=== PATIENT | male | born 1965 | race Caucasian/White ===

== ENCOUNTER 2016-08-01 14:41 | Inpatient (IN) | payer OTHER ==
[~2016-08-01] VITALS: Ht 180.3 cm; Wt 225.2 kg
[~2016-08-01 14:41] MED LIST: ADVIL,NUPRIN,M200 MG PO; BISOPROLOL-HCT1 EAC2 PO; HYDROCODON-ACE1 EAC7 PO
[2016-08-01 16:02] LABS: MCH 34.5 PG (29.0-34.0); MCHC 34.6 G/DL (30.0-36.0); MCV 99.8 FL (86-99); MEAN PLAT.VOLUME 9.8 uM^3 (9.0-12.4); PLATELET COUNT 177 K/uL (156-360); RBC DIS.WIDTH-CV 13.5 % (11.8-14.6); RBC DIS.WIDTH-SD 47.9 % (39-53); RED BLOOD COUNT 4.11 M/uL (4.00-5.50); WHITE BLOOD COUNT 11.2 K/uL (4.1-10.2)
[2016-08-01 16:16] LABS: CHLORIDE 102 mEq/L (99-109); POTASSIUM 4.6 mEq/L (3.7-5.4); SODIUM 134 mEq/L (136-147)
[2016-08-01 16:18] LABS: GLUCOSE 111 mg/dL (70-99)
[2016-08-01 16:19] LABS: ANION GAP 10 MEQ/L (2-14)
[2016-08-01 16:22] LABS: GFR ESTIMATE (CALCULATED) > 59 mL/min/; UREA NITROGEN (BUN) 8 mg/dL (9-23)
[2016-08-01 16:26] LABS: D-DIMER ELISA > 4.00 mg/L FEU (< 0.57)
[2016-08-01 16:27] LABS: TROP-I INTERPRETATION NEGATIVE; TROPONIN-I < 0.01 ng/mL (0.0-0.30)
[2016-08-01 17:28] LABS: BASOPHIL COUNT 0.1 K/uL (0-0.1); EOSINOPHIL (%) 3.8 % (0-5); EOSINOPHIL COUNT 0.4 K/uL (0-0.3); IMMATURE GRANULOCYTE (%) 1.8 % (0.0-0.7); LYMPHOCYTE COUNT 1.7 K/uL (1.0-2.8); MONOCYTE (%) 6.2 % (3-12); MONOCYTE COUNT 0.7 K/uL (0-0.8); NEUTROPHIL (%) 72.8 % (45-76); NEUTROPHIL COUNT 8.3 K/uL (1.8-6.4)
[2016-08-01 17:50] LABS: INTER. NORMALIZED RATIO 1.5; PROTHROMBIN TIME 15.8 (9.2-11.2); PTT 25.7 (25-32)
[2016-08-01] MEDS ORDERED: ELAVIL25 MG PO (19:09)
[2016-08-01] MEDS ORDERED: BISOPROLOL-HCT1 EACH PO (19:09)
[2016-08-01] MEDS ORDERED: TOPAMAX25 MG PO (19:10)
[2016-08-01] MEDS ORDERED: NUCYNTA50 MG PO (19:10)
[2016-08-01 22:38] VITALS: BP 176/86
[2016-08-02 04:12] VITALS: BP 156/70
[2016-08-02 06:16] LABS: EOSINOPHIL (%) 5.5 % (0-5); EOSINOPHIL COUNT 0.5 K/uL (0-0.3); HEMATOCRIT 38.6 % (38.0-50.0); IMMATURE GRANULOCYTE (%) 0.5 % (0.0-0.7); IMMATURE GRANULOCYTE COUNT 0.1 K/uL; LYMPHOCYTE COUNT 2.2 K/uL (1.0-2.8); MCH 33.1 PG (29.0-34.0); MCHC 32.1 G/DL (30.0-36.0); MCV 102.9 FL (86-99); MEAN PLAT.VOLUME 10.1 uM^3 (9.0-12.4); MONOCYTE COUNT 0.7 K/uL (0-0.8); NEUTROPHIL COUNT 5.7 K/uL (1.8-6.4); PLATELET COUNT 180 K/uL (156-360); RBC DIS.WIDTH-CV 14.1 % (11.8-14.6); RBC DIS.WIDTH-SD 52.7 % (39-53); RED BLOOD COUNT 3.75 M/uL (4.00-5.50); WHITE BLOOD COUNT 9.2 K/uL (4.1-10.2)
[2016-08-02 06:43] LABS: ANION GAP 9 MEQ/L (2-14); CHLORIDE 100 MEQ/L (99-109); GFR ESTIMATE (CALCULATED) > 59 mL/min/; GLUCOSE 121 mg/dL (70-99); SAMPLE HEMOLYSIS CHECK 0; SAMPLE ICTERIC CHECK 0; SAMPLE LIPEMIA CHECK 0; SODIUM 134 MEQ/L (136-147); UREA NITROGEN (BUN) 9 mg/dL (9-23)
[2016-08-02 07:23] VITALS: BP 160/88
[2016-08-02 12:32] VITALS: BP 157/78
[2016-08-02 16:00] VITALS: BP 145/79
[2016-08-02 16:22] LABS: INTER. NORMALIZED RATIO 1.4; PROTHROMBIN TIME 14.7 (9.2-11.2); PTT 34.8 (25-32)
[2016-08-02 19:22] VITALS: BP 133/70
[2016-08-03 00:13] VITALS: BP 142/88
[2016-08-03 03:24] LABS: HEMATOCRIT 36.7 % (38.0-50.0); MCH 34.2 PG (29.0-34.0); MCHC 33.8 G/DL (30.0-36.0); MCV 101.1 FL (86-99); MEAN PLAT.VOLUME 9.7 uM^3 (9.0-12.4); PLATELET COUNT 187 K/uL (156-360); RBC DIS.WIDTH-CV 13.9 % (11.8-14.6); RBC DIS.WIDTH-SD 49.8 % (39-53); RED BLOOD COUNT 3.63 M/uL (4.00-5.50); WHITE BLOOD COUNT 9.4 K/uL (4.1-10.2)
[2016-08-03 03:35] LABS: INTER. NORMALIZED RATIO 1.3; PROTHROMBIN TIME 13.5 (9.2-11.2)
[2016-08-03 03:52] VITALS: BP 131/84
[2016-08-03 08:32] VITALS: BP 156/80
[2016-08-03 16:13] VITALS: BP 160/75
[2016-08-03 23:57] VITALS: BP 174/81
[2016-08-04 03:40] VITALS: BP 142/88
[2016-08-04 06:17] LABS: HEMATOCRIT 37.1 % (38.0-50.0); MCH 34.3 PG (29.0-34.0); MCHC 33.4 G/DL (30.0-36.0); MCV 102.5 FL (86-99); MEAN PLAT.VOLUME 10.5 uM^3 (9.0-12.4); PLATELET COUNT 209 K/uL (156-360); RBC DIS.WIDTH-CV 14.2 % (11.8-14.6); RBC DIS.WIDTH-SD 52.9 % (39-53); RED BLOOD COUNT 3.62 M/uL (4.00-5.50); WHITE BLOOD COUNT 9.4 K/uL (4.1-10.2)
[2016-08-04 06:30] LABS: INTER. NORMALIZED RATIO 1.4; PROTHROMBIN TIME 14.1 (9.2-11.2); PTT 37.8 (25-32)
[2016-08-04 07:18] LABS: ANION GAP 9 MEQ/L (2-14); CHLORIDE 103 MEQ/L (99-109); GFR ESTIMATE (CALCULATED) > 59 mL/min/; GLUCOSE 98 mg/dL (70-99); POTASSIUM 3.9 MEQ/L (3.7-5.4); SAMPLE HEMOLYSIS CHECK 0; SAMPLE ICTERIC CHECK 0; SAMPLE LIPEMIA CHECK 0; SODIUM 136 MEQ/L (136-147); UREA NITROGEN (BUN) 9 mg/dL (9-23)
[2016-08-04 07:53] LABS: Estimated Average Glucose 120 mg/dL (70-123); HEMOGLOBIN A1c (GLYCOHEMOGLOB) 5.8 % HGB (Below 5.7)
[2016-08-04 08:40] VITALS: BP 170/89
[2016-08-04 16:19] VITALS: BP 143/87
[2016-08-05] VITALS: BP 157/82
[2016-08-05 06:40] LABS: INTER. NORMALIZED RATIO 1.9; PROTHROMBIN TIME 20.1 (9.2-11.2)
[2016-08-05 08:21] LABS: PTT 40.1 (25-32)
[2016-08-05 08:30] VITALS: BP 175/81
[2016-08-05 15:36] VITALS: BP 140/76
[2016-08-05 23:57] VITALS: BP 152/83
[2016-08-06 06:12] LABS: HEMATOCRIT 38.8 % (38.0-50.0); MCH 33.2 PG (29.0-34.0); MCHC 32.5 G/DL (30.0-36.0); MCV 102.1 FL (86-99); MEAN PLAT.VOLUME 9.9 uM^3 (9.0-12.4); PLATELET COUNT 247 K/uL (156-360); RBC DIS.WIDTH-CV 14.1 % (11.8-14.6); RBC DIS.WIDTH-SD 52.4 % (39-53); WHITE BLOOD COUNT 10.7 K/uL (4.1-10.2)
[2016-08-06 06:22] LABS: INTER. NORMALIZED RATIO 2.3; PROTHROMBIN TIME 24.3 (9.2-11.2)
[2016-08-06 07:32] VITALS: BP 143/85
[2016-08-06] MEDS ORDERED: TRAMADOL HCL50 MG PO (11:30)
[2016-08-06] MEDS ORDERED: KEFLEX500 MG PO (11:37)
[2016-08-06] MEDS ORDERED: WARFARIN SODIUM5 MG PO (11:46)
[2016-08-06] MEDS ORDERED: MICRO-GUARD85 GM TP (13:32)
== END 2016-08-06 15:13 | disposition home health service (06) | DRG 603 ==
LOC: EME 14:41 → 5SOUTH 19:58 → EDOF 19:58 → 5SOUTH 22:18
PROVIDERS: Hospitalist; Internal Medicine Hematology & Oncology; Nurse Practitioner Adult Health
DX: L03.114 Cellulitis of left upper limb (principal); I10 Essential (primary) hypertension; G47.33 Obstructive sleep apnea (adult) (pediatric); Z68.44 Body mass index [BMI] 60.0-69.9, adult; E66.01 Morbid (severe) obesity due to excess calories; Z86.718 Personal history of other venous thrombosis and embolism; G47.30 Sleep apnea, unspecified; R05 Cough
CPT/HCPCS: 71020; 78582; 80048; 81003; 83036; 83605; 84484; 85025; 85027; 85379; 85610; 85730; 87040; 93005; 93970; 99281; 99285; A9540; A9567; J0690; J1650; J2270; J2405; J2543; J3370; J7030; J7050

== ENCOUNTER 2016-08-09 10:14 | Inpatient (IN) | payer OTHER ==
[~2016-08-09] VITALS: Ht 180.3 cm; Wt 235.0 kg
[~2016-08-09 10:14] MED LIST changes: +BISOPROLOL-HCT1 EACH PO; +ELAVIL25 MG PO; +KEFLEX500 MG PO; +MICRO-GUARD85 GM TP; +NUCYNTA50 MG PO; +TOPAMAX25 MG PO; +TRAMADOL HCL50 MG PO; +WARFARIN SODIUM5 MG PO
[2016-08-09 14:09] LABS: HEMATOCRIT 41.5 % (38.0-50.0); MCH 33.3 PG (29.0-34.0); MCHC 32.8 G/DL (30.0-36.0); MCV 101.5 FL (86-99); MEAN PLAT.VOLUME 9.6 uM^3 (9.0-12.4); PLATELET COUNT 320 K/uL (156-360); RBC DIS.WIDTH-CV 13.5 % (11.8-14.6); RBC DIS.WIDTH-SD 49.7 % (39-53); RED BLOOD COUNT 4.09 M/uL (4.00-5.50); WHITE BLOOD COUNT 11.7 K/uL (4.1-10.2)
[2016-08-09 14:20] LABS: CHLORIDE 103 mEq/L (99-109); POTASSIUM 4.1 mEq/L (3.7-5.4); SODIUM 137 mEq/L (136-147)
[2016-08-09 14:21] LABS: GLUCOSE 90 mg/dL (70-99)
[2016-08-09 14:23] LABS: ANION GAP 11 MEQ/L (2-14)
[2016-08-09 14:25] LABS: GFR ESTIMATE (CALCULATED) > 59 mL/min/
[2016-08-09 14:26] LABS: UREA NITROGEN (BUN) 7 mg/dL (9-23)
[2016-08-09] MEDS ORDERED: COUMADIN5 MG PO (15:06)
[2016-08-09] MEDS ORDERED: BENADRYL ALLERG25 MG PO (15:10)
[2016-08-09] MEDS ORDERED: HYDROCHLOROTHIA25 MG PO (15:10)
[2016-08-09 15:54] LABS: TOTAL BILIRUBIN 0.4 mg/dL (0.0-1.0)
[2016-08-09 15:55] LABS: ALKALINE PHOSPHATASE 79 IU/L (3-129)
[2016-08-09 15:57] LABS: DIRECT BILIRUBIN 0.3 mg/dL (0.0-0.3)
[2016-08-09 16:54] LABS: INTER. NORMALIZED RATIO 9.7
[2016-08-09 20:38] VITALS: BP 125/67
[2016-08-10 05:03] VITALS: BP 112/58
[2016-08-10 06:52] LABS: EOSINOPHIL (%) 0.1 % (0-5); HEMATOCRIT 43.3 % (38.0-50.0); IMMATURE GRANULOCYTE (%) 0.9 % (0.0-0.7); IMMATURE GRANULOCYTE COUNT 0.1 K/uL; LYMPHOCYTE COUNT 2.2 K/uL (1.0-2.8); MCH 34.5 PG (29.0-34.0); MCHC 34.4 G/DL (30.0-36.0); MCV 100.2 FL (86-99); MONOCYTE (%) 4.3 % (3-12); MONOCYTE COUNT 0.6 K/uL (0-0.8); NEUTROPHIL (%) 79.7 % (45-76); NEUTROPHIL COUNT 11.8 K/uL (1.8-6.4); PLATELET COUNT 391 K/uL (156-360); RBC DIS.WIDTH-CV 13.3 % (11.8-14.6); RED BLOOD COUNT 4.32 M/uL (4.00-5.50); WHITE BLOOD COUNT 14.8 K/uL (4.1-10.2)
[2016-08-10 07:31] LABS: ALKALINE PHOSPHATASE 79 IU/L (3-129); ANION GAP 12 MEQ/L (2-14); CHLORIDE 102 MEQ/L (99-109); GFR ESTIMATE (CALCULATED) > 59 mL/min/; POTASSIUM 4.6 MEQ/L (3.7-5.4); SAMPLE HEMOLYSIS CHECK 0; SAMPLE ICTERIC CHECK 0; SAMPLE LIPEMIA CHECK 0; SODIUM 135 MEQ/L (136-147); TOTAL BILIRUBIN 0.5 MG/DL (0.0-1.0); UREA NITROGEN (BUN) 9 mg/dL (9-23)
[2016-08-10 07:33] LABS: GLUCOSE 118 mg/dL (70-99)
[2016-08-10 07:47] LABS: PROTHROMBIN TIME 75.8 (9.2-11.2)
[2016-08-10 08:30] VITALS: BP 122/60
[2016-08-10 12:13] VITALS: BP 108/56
[2016-08-10 16:28] VITALS: BP 123/58
[2016-08-11] VITALS: BP 122/67
[2016-08-11 03:53] VITALS: BP 121/59
[2016-08-11 08:06] LABS: INTER. NORMALIZED RATIO 3.5; PROTHROMBIN TIME 37.6 (9.2-11.2)
[2016-08-11 08:07] LABS: HEM NON-PRINT 2 VIT K
[2016-08-11 10:39] VITALS: BP 134/61
[2016-08-11 13:19] VITALS: BP 146/78
[2016-08-11 16:03] VITALS: BP 134/72
[2016-08-11 23:01] VITALS: BP 148/74
[2016-08-12 08:29] LABS: INTER. NORMALIZED RATIO 3.5; PROTHROMBIN TIME 37.6 (9.2-11.2)
[2016-08-12 08:43] LABS: ANION GAP 9 MEQ/L (2-14); CHLORIDE 103 MEQ/L (99-109); GFR ESTIMATE (CALCULATED) > 59 mL/min/; POTASSIUM 4.3 MEQ/L (3.7-5.4); SAMPLE HEMOLYSIS CHECK 0; SAMPLE ICTERIC CHECK 0; SAMPLE LIPEMIA CHECK 0; SODIUM 138 MEQ/L (136-147); UREA NITROGEN (BUN) 11 mg/dL (9-23)
[2016-08-12 08:52] LABS: GLUCOSE 85 mg/dL (70-99)
[2016-08-12 08:53] LABS: MCH 34.4 PG (29.0-34.0); MCHC 33.8 G/DL (30.0-36.0); MCV 101.6 FL (86-99); PLATELET COUNT 302 K/uL (156-360); RBC DIS.WIDTH-CV 13.6 % (11.8-14.6); RBC DIS.WIDTH-SD 50.5 % (39-53); RED BLOOD COUNT 3.84 M/uL (4.00-5.50)
[2016-08-12 08:55] LABS: WHITE BLOOD COUNT 8.9 K/uL (4.1-10.2)
[2016-08-12 09:27] VITALS: BP 120/58
[2016-08-12 16:30] VITALS: BP 134/70
[2016-08-12 23:37] VITALS: BP 135/67
[2016-08-13 07:32] VITALS: BP 144/78
[2016-08-13 07:41] LABS: INTER. NORMALIZED RATIO 4.3; PROTHROMBIN TIME 46.2 (9.2-11.2)
[2016-08-13 16:08] VITALS: BP 129/59
[2016-08-13 23:29] VITALS: BP 128/71
[2016-08-14 06:45] LABS: INTER. NORMALIZED RATIO 4.3
[2016-08-14 08:34] VITALS: BP 130/82
[2016-08-14] MEDS ORDERED: CYANOCOBALAM1000 MCG PO (11:03)
[2016-08-14] MEDS ORDERED: FOLIC ACID1 MG PO (11:03)
[2016-08-14] MEDS ORDERED: CLINDAMYCIN HC300 MG PO (11:04)
[2016-08-14] MEDS ORDERED: CIPRO500 MG PO (11:04)
[2016-08-14] MEDS ORDERED: FLUCONAZOLE200 MG PO (11:05)
== END 2016-08-14 14:45 | disposition home or self-care (01) | DRG 728 ==
LOC: EME 10:14 → EDOF 15:12 → 5WEST 19:20 → 5EAST 08-10 08:37
PROVIDERS: Emergency Medicine; Hospitalist; Internal Medicine
DX: N49.8 Inflammatory disorders of other specified male genital organs (principal); Z68.45 Body mass index [BMI] 70 or greater, adult; L03.314 Cellulitis of groin; L03.315 Cellulitis of perineum; D68.32 Hemorrhagic disorder due to extrinsic circulating anticoagulants; F43.22 Adjustment disorder with anxiety; E66.01 Morbid (severe) obesity due to excess calories; I10 Essential (primary) hypertension; Z86.718 Personal history of other venous thrombosis and embolism; Z96.651 Presence of right artificial knee joint; B37.2 Candidiasis of skin and nail; G47.33 Obstructive sleep apnea (adult) (pediatric); N49.2 Inflammatory disorders of scrotum; T45.515A Adverse effect of anticoagulants, initial encounter; Z91.19 Patient's noncompliance with other medical treatment and regimen
CPT/HCPCS: 76870; 80048; 80053; 80076; 82607; 82746; 83605; 83735; 83880; 85025; 85027; 85610; 87040; 94760; 99202; 99281; 99285; G0378; J0744; J1200; J1450; J2930; S0028

== ENCOUNTER 2017-11-26 16:27 | Inpatient (IN) | payer OTHER ==
[~2017-11-26] VITALS: Ht 180.3 cm; Wt 180.0 kg
[~2017-11-26 16:27] MED LIST changes: +BENADRYL ALLERG25 MG PO; +CIPRO500 MG PO; +CLINDAMYCIN HC300 MG PO; +COUMADIN5 MG PO; +CYANOCOBALAM1000 MCG PO; +FLUCONAZOLE200 MG PO; +FOLIC ACID1 MG PO; +HYDROCHLOROTHIA25 MG PO; +TOPAMAX100 MG PO; -TOPAMAX25 MG PO
[2017-11-26 17:32] LABS: HEMATOCRIT 38.8 % (38.0-50.0); HEMOGLOBIN 13.6 G/DL (12.5-16.6); MCH 34.3 PG (29.0-34.0); MCHC 35.1 G/DL (30.0-36.0); MCV 97.7 FL (86-99); PLATELET COUNT 256 K/uL (156-360); RBC DIS.WIDTH-CV 14.4 % (11.8-14.6); RBC DIS.WIDTH-SD 51.6 % (39-53); RED BLOOD COUNT 3.97 M/uL (4.00-5.50); WHITE BLOOD COUNT 13.7 K/uL (4.1-10.2)
[2017-11-26 17:50] LABS: CHLORIDE 100 mEq/L (99-109); POTASSIUM 4.2 mEq/L (3.7-5.4); SODIUM 136 mEq/L (136-147)
[2017-11-26 17:52] LABS: GLUCOSE 128 mg/dL (70-99)
[2017-11-26 17:56] LABS: CREATININE 0.9 mg/dL (0.6-1.3); GFR ESTIMATE (CALCULATED) > 59 mL/min/ (58.99-99999)
[2017-11-26 17:57] LABS: UREA NITROGEN (BUN) 11 mg/dL (9-23)
[2017-11-26 20:42] LABS: SERUM ETHYL ALCOHOL < 10 mg/dL
[2017-11-26] MEDS ORDERED: B-121000 MC2 PO (21:19)
[2017-11-26] MEDS ORDERED: IBUPROFEN600 MG PO (21:19)
[2017-11-26] MEDS ORDERED: LASIX20 MG PO (21:20)
[2017-11-26] MEDS ORDERED: WELLBUTRIN XL300 MG PO (21:20)
[2017-11-26] MEDS ORDERED: COUMADIN5 MG PO (21:32)
[2017-11-26] MEDS ORDERED: BP MEDICATION (22:09)
[2017-11-26 22:45] LABS: PTT 34.7 SEC (25-37)
[2017-11-26 23:20] VITALS: BP 130/69
[2017-11-27] VITALS (14 sets, daily range): BP systolic 123–172; BP diastolic 50–89
[2017-11-27 01:52] LABS: BENZODIAZEPINES, URINE SCREEN Negative (200 ng/mL)
[2017-11-27 05:02] LABS: HEMOGLOBIN 13.1 G/DL (12.5-16.6); MCH 34.7 PG (29.0-34.0); MCHC 35.4 G/DL (30.0-36.0); MCV 98.1 FL (86-99); PLATELET COUNT 182 K/uL (156-360); RBC DIS.WIDTH-CV 14.2 % (11.8-14.6); RBC DIS.WIDTH-SD 51.2 % (39-53); RED BLOOD COUNT 3.77 M/uL (4.00-5.50)
[2017-11-27 05:26] LABS: CHLORIDE 100 mEq/L (99-109); POTASSIUM 4.2 mEq/L (3.7-5.4); SODIUM 136 mEq/L (136-147)
[2017-11-27 05:28] LABS: GLUCOSE 157 mg/dL (70-99)
[2017-11-27 05:32] LABS: CREATININE 0.8 mg/dL (0.6-1.3); GFR ESTIMATE (CALCULATED) > 59 mL/min/ (58.99-99999)
[2017-11-27 05:33] LABS: UREA NITROGEN (BUN) 13 mg/dL (9-23)
[2017-11-27 09:54] LABS: INTER. NORMALIZED RATIO 1.6
[2017-11-28] VITALS (9 sets, daily range): BP systolic 133–168; BP diastolic 63–82
[2017-11-28 05:17] LABS: INTER. NORMALIZED RATIO 1.4
[2017-11-29 05:53] LABS: INTER. NORMALIZED RATIO 1.8
[2017-11-29 06:50] VITALS: BP 132/64
[2017-11-29] MEDS ORDERED: MEDROL DOSEPAK4 MG PO (12:00)
== END 2017-11-29 14:12 | disposition home or self-care (01) | DRG 204 ==
LOC: EME 16:27 → ENRESERV 20:39 → EDOF 20:39 → 4WEST 20:39 → ENRESERV 21:37 → 4WEST 23:09 → ENRESERV 11-28 08:52 → 5EAST 11-28 11:18
PROVIDERS: Emergency Medicine; Specialist; Surgery
PROC: 0CJS8ZZ Inspection of Larynx, Via Natural or Artificial Opening Endoscopic (ICD-10-PCS; principal; 2017-11-26)
DX: R06.03 Acute respiratory distress (principal); J38.4 Edema of larynx; F41.9 Anxiety disorder, unspecified; E66.01 Morbid (severe) obesity due to excess calories; I10 Essential (primary) hypertension; Z86.718 Personal history of other venous thrombosis and embolism; Z87.820 Personal history of traumatic brain injury; G47.33 Obstructive sleep apnea (adult) (pediatric); G89.29 Other chronic pain; F32.9 Major depressive disorder, single episode, unspecified; Z91.19 Patient's noncompliance with other medical treatment and regimen; R13.10 Dysphagia, unspecified; J34.2 Deviated nasal septum; R05 Cough; R07.0 Pain in throat; R11.2 Nausea with vomiting, unspecified; R49.0 Dysphonia; Z91.013 Allergy to seafood; Z86.19 Personal history of other infectious and parasitic diseases; Z79.01 Long term (current) use of anticoagulants; R60.0 Localized edema; T45.515A Adverse effect of anticoagulants, initial encounter; R79.1 Abnormal coagulation profile; Z68.43 Body mass index [BMI] 50.0-59.9, adult
CPT/HCPCS: 70491; 71045; 80048; 80306 90; 85027; 85610; 85730; 87641; 94640; 94640 76; 94760; 99202; 99281; 99284; G0480; J0171; J1100; J1200; J1644; J1650; J2060; J2405; J2930; J3010; J7512; S0028